=== PATIENT | male | born 1980 | race Two or more races ===

== ENCOUNTER 2020-05-21 15:22 | Inpatient (IN) | payer OTHER, MEDICAID ==
[~2020-05-21] VITALS: Ht 170.2 cm; Wt 77.6 kg
[2020-05-21] MEDS ORDERED: HEPARIN SODIUM (PORCINE) 5000 UNITS/ML 1ML VIAL IV ONE ×2 (17:15→17:30)
[2020-05-21] MEDS ORDERED: HEPARIN DRIP/D5W 100UNITS/ML 250 ML IV SCH (17:28)
[2020-05-21] MEDS ORDERED: IOHEXOL 300 MG/ML 100ML BOTTLE IJ ONE (17:29)
[2020-05-21] MEDS ORDERED: MORPHINE SULF INJ 2 MG/ML SYRINGE 1ML IV PRN ×3 (18:15→21:30)
[2020-05-21] MEDS ORDERED: NITROGLYCERIN 0.4 MG SL TAB SL PRN ×2 (18:15→21:30)
[2020-05-21 18:43] LABS: Basophils # (auto) 0.1 10 ^3/uL (0-0.2); Basophils % (auto) 1.3 % (0.0-2.0); Eosinophils # (auto) 0 10 ^3/uL (0-0.8); Eosinophils % (auto) 0.1 % (0.0-7.0); Hematocrit 42.7 % (41.0-53.0); Hemoglobin 13.7 g/dL (13.5-17.5); Lymphocytes # (auto) 1.1 10 ^3/uL (0.4-5.4); Mean Corpuscular Hemoglobin 27.3 pg (28.0-32.0); Mean Corpuscular Volume 85.4 fL (80.0-100.0); Monocytes # (auto) 0.8 10 ^3/uL (0-1.3); Monocytes % (auto) 8.2 % (0.0-12.0); Neutrophils # (auto) 7.3 10 ^3/uL (1.6-8.6); Neutrophils % (auto) 78.4 % (37.0-80.0); Nucleated Red Blood Cells % 0.2 %; Platelet Count (auto) 276 10^3/uL (140-450); Red Cell Distribution Width 14.9 % (11.8-14.3); White Blood Cell 9.3 10^3/uL (4.4-10.8)
[2020-05-21 19:00] LABS: Albumin 3.4 g/dL (3.4-5.0); Calcium 8.5 mg/dL (8.5-10.1); Potassium 3.4 mmol/L (3.5-5.1)
[2020-05-21 19:03] LABS: Bilirubin, Total 1.4 mg/dL (0.2-1.0); Total Protein 6.9 g/dL (6.4-8.2)
[2020-05-21 19:09] LABS: INR 1.12 (0.9-1.15); Partial Thromboplastin Time 31.8 sec (23.0-31.2)
[2020-05-21] MEDS ORDERED: LORazepam 0.5 MG TAB PO PRN (21:30)
[2020-05-21] MEDS ORDERED: ACETAMINOPHEN 325 MG TAB PO PRN (21:30)
[2020-05-21] MEDS ORDERED: POTASSIUM CHL 20 Meq TABLET PO ONE (21:30)
[2020-05-21] MEDS ORDERED: ONDANSETRON HCL 4 MG/2 ML VIAL IV PRN (21:30)
[2020-05-21] MEDS ORDERED: DOCUSATE SOD 100 MG CAP PO PRN (21:30)
[2020-05-21] MEDS ORDERED: IBUPROFEN 400 MG TAB PO PRN (21:30)
[2020-05-21] MEDS: SODIUM CHLORIDE 0.9% 1,000 ML IV SCH (21:43)
[2020-05-21 21:47] LABS: Cholesterol 202 mg/dL (< 200); HDL Cholesterol 49 mg/dL (40-59); LDL Cholesterol 145 mg/dL (< 100); Triglycerides 113 mg/dL (< 150)
[2020-05-22 02:34] LABS: INR 1.16 (0.9-1.15); Partial Thromboplastin Time 50.4 sec (23.0-31.2)
[2020-05-22 06:20] LABS: Basophils # (auto) 0.1 10 ^3/uL (0-0.2); Basophils % (auto) 0.7 % (0.0-2.0); Eosinophils # (auto) 0 10 ^3/uL (0-0.8); Eosinophils % (auto) 0.2 % (0.0-7.0); Hematocrit 38.2 % (41.0-53.0); Hemoglobin 12.5 g/dL (13.5-17.5); Lymphocytes # (auto) 1.4 10 ^3/uL (0.4-5.4); Lymphocytes % (auto) 16.3 % (10.0-50.0); Mean Corpuscular Hemoglobin 27.7 pg (28.0-32.0); Mean Corpuscular Hgb Conc. 32.8 g/dL (32.0-36.0); Mean Corpuscular Volume 84.3 fL (80.0-100.0); Monocytes # (auto) 0.7 10 ^3/uL (0-1.3); Monocytes % (auto) 7.8 % (0.0-12.0); Neutrophils # (auto) 6.3 10 ^3/uL (1.6-8.6); Platelet Count (auto) 268 10^3/uL (140-450); Red Blood Cells 4.53 10^6/uL (4.5-5.90); Red Cell Distribution Width 14.9 % (11.8-14.3); White Blood Cell 8.5 10^3/uL (4.4-10.8)
[2020-05-22 06:34] LABS: INR 1.11 (0.9-1.15); Partial Thromboplastin Time 44.9 sec (23.0-31.2)
[2020-05-22 06:36] LABS: Chloride 108 mmol/L (98-107); Potassium 3.9 mmol/L (3.5-5.1); Sodium 135 mmol/L (136-145)
[2020-05-22 06:46] LABS: Alanine Aminotransferase 33 U/L (16-61); Albumin 2.9 g/dL (3.4-5.0); Alkaline Phosphatase 78 U/L (45-117); Anion Gap 11 (5-15); Aspartate Aminotransferase 27 U/L (15-37); Bilirubin, Total 1.2 mg/dL (0.2-1.0); Blood Urea Nitrogen 6 mg/dL (7-18); Calcium 7.9 mg/dL (8.5-10.1); Carbon Dioxide 16 mmol/L (21-32); Glucose 68 mg/dL (74-106); Magnesium 2.1 mg/dL (1.6-2.6); Total Protein 6.4 g/dL (6.4-8.2)
[2020-05-22 06:57] LABS: BUN/Creatinine Ratio 7.1; GFR African American 130 mL/min; GFR Non-African American 107 mL/min
[2020-05-22 08:48] LABS: Urine Bacteria NONE SEEN /hpf (None Seen); Urine Blood Negative /uL (Negative); Urine Specific Gravity 1.023 (1.001-1.035); Urine WBC <1 /hpf (0 - 3)
[2020-05-22 08:55] LABS: Alcohol, Urine < 3.0 mg/dL (0-10); Amphetamine Screen, Urine NEGATIVE (NEGATIVE); Barbiturate Scree,Urine NEGATIVE (NEGATIVE); Benzodiazephine Screen, Urine NEGATIVE (NEGATIVE); Cannabinoid Screen, Urine NEGATIVE (NEGATIVE); Cocaine Screen, Urine NEGATIVE (NEGATIVE); Opiate Scree,Urine NEGATIVE (NEGATIVE); Phencyclidine Screen, Urine NEGATIVE (NEGATIVE)
[2020-05-22] MEDS: POTASSIUM CHL 20 Meq TABLET PO SCH (10:00)
[2020-05-22 10:58] LABS: INR 1.14 (0.9-1.15)
--- NOTE | 2020-05-22 12:45 | NUR ---
Telemetry admit from [facility] admitted to Telemetry unit after SBAR received. Patient oriented to CHUCKY BOOGIE, primary RN, unit, room, bed, and unit policies regarding patient care and visiting hours. Patient now on continuous telemetry monitoring. Patient weighed by bedscale and encouraged to call if they need something. All questions and concerns addressed, patient verbalized understanding.
[2020-05-22] MEDS: SODIUM CHLORIDE 0.9% 1,000 ML IV SCH (14:47)
[2020-05-22 16:01] LABS: INR 1.11 (0.9-1.15); Partial Thromboplastin Time 48.1 sec (23.0-31.2)
[2020-05-22 17:00] VITALS: BP 93/59
[2020-05-22] MEDS: HEPARIN DRIP/D5W 100UNITS/ML 250 ML IV SCH (17:30)
--- NOTE | 2020-05-22 19:24 | NUR ---
Opening Shift Note Assumed care of patient, awake and alert x 4 but is unable to move his bilateral lower extremities and has moderate weakness in his bilateral upper extremities, secondary to muscular dystrophy. No S/S of distress/SOB or pain. Bed is in lowest position and locked. Heparin infusing at 1400 units per hour or 14 mls/hr. Tele box number matches monitor and leads are in correct placement. Instructed on POC and to call for assist PRN, will continue to monitor for changes Q1hr and PRN.
[2020-05-22 21:00] VITALS: BP 111/82
--- NOTE | 2020-05-22 23:01 | NUR ---
Lab industrial ecology technician unable to draw blood due to arm constriction r/t patient's muscular dystrophy. Lab notified. Second industrial ecology technician coming from to draw patient's blood.
--- NOTE | 2020-05-22 23:49 | NUR ---
Successful lab draw completed. PT/PTT sent to lab. Awaiting results to titrate Heparin.
[2020-05-22] MEDS: HYDROcodone-ACET 5/325MG TAB PO PRN (23:55)
--- NOTE | 2020-05-23 00:04 | NUR ---
Scheduled next PT/PTT for 0500 to give extra time to lab wound specialist to draw blood.
[2020-05-23 00:22] LABS: INR 1.08 (0.9-1.15); Partial Thromboplastin Time 43.6 sec (23.0-31.2)
--- NOTE | 2020-05-23 00:32 | NUR ---
APTT is now 43.6 sec. Heparin infusion increased by 200 units/20 mls per hour to 1600 units/16 units per hour. Will continue to assess. Addendum: 05/23/20 at 0633 by DENNYS SHIELDS RN 200 units/2 mls not 200 units/20 mls; total amount being given is now 1600 units/16 mls per hour.
[2020-05-23 05:00] VITALS: BP 104/73
--- NOTE | 2020-05-23 05:18 | NUR ---
Blood draw for PT/PTT drawn by cpo and sent to lab. Awaiting results.
[2020-05-23 06:02] LABS: INR 1.11 (0.9-1.15)
[2020-05-23 06:04] LABS: Partial Thromboplastin Time 86.8 sec (23.0-31.2)
--- NOTE | 2020-05-23 06:06 | NUR ---
PTT has now risen to 86.8. Per Heparin protocol order, I will decrease Heparin infusion to 14 ml/hr or 1400 ml/hr.
[2020-05-23] MEDS: SODIUM CHLORIDE 0.9% 1,000 ML IV SCH ×2 (06:20→23:30)
--- NOTE | 2020-05-23 07:30 | NUR ---
Opening Shift Note Assumed care of patient, awake and alert. No S/S of distress/SOB or pain. Instructed on POC and to call for assist PRN, will continue to monitor for changes Q1hr and PRN. Fall precautions in place per safety protocol.
[2020-05-23] MEDS: PANTOPRAZOLE 40 MG/10 ML VIAL INJ IV SCH (10:35)
[2020-05-23] MEDS: POTASSIUM CHL 20 Meq TABLET PO SCH (10:35)
--- NOTE | 2020-05-23 10:54 | NUR ---
WOUND CARE NOTE: Wound care in to see patient per wound care request regarding " Low Deon Score, Prolonged immobility r/t muscular dystrophy." Patient is 40 years old male with admitting diagnosis of LE DVT. Patient is resting in bed in Rm. 222A. Patient is awake, alert and oriented. He's wheelchair bound but has good upper body strength, able to call for assistance if needed cleaning and repositioning. His Deon score is 17. Patient is in no stated pain at this time and he appears to be in no pain using [place] Tristan Faces Pain Scale. Skin assessment done with the assistance of patient's nurse, MONIQUE Fontenot. No wound or pressure injury noted. Patient is receiving BID/PRN cleaning and application of Barrier cream to sacral, buttocks as preventative. Repositioned patient for comfort facing his Lt side, redistributed pressure points with pillows. Patient tolerated well. MONIQUE Fontenot at bedside. RECOMMENDATION: Nursing to continue with BID/PRN cleaning and application of Barrier cream to sacral, buttocks as preventative, frequent turning and repositioning schedule as condition permits, redistribute pressure points with pillows, elevate heels on pillows, continue monitoring by wound care while patient is hospitalized. Addendum: 05/23/20 at 1552 by Lisa Bose RN Amended: Links added.
[2020-05-23 12:05] LABS: INR 1.09 (0.9-1.15)
[2020-05-23 12:10] LABS: Partial Thromboplastin Time 70.4 sec (23.0-31.2)
[2020-05-23] MEDS: HEPARIN DRIP/D5W 100UNITS/ML 250 ML IV SCH (12:10)
--- NOTE | 2020-05-23 12:12 | NUR ---
PTT 70.4. Per Heparin protocol order, no changes made, cont Heparin infusion at 14 ml/hr. Will cont to monitor patient.
--- NOTE | 2020-05-23 15:41 | NUR ---
assessment re: ss consult Patient is a 40 year old male who is alert and oriented. Per patient he lives home with roommates and functions with assistance of his [facility] caregiver. Patient informed me he gets 100 or more hours per month. Patient has a wheelchair and van with wheelchair ramp for his use. Patient informed me his PCP is Dr Dias. Patient has muscular dystrophy. I informed patient of his ss consult for needing more help during the day. Patient informed me his good friend is his caregiver and will come whenever he needs him. Patient stated he doesn't want to bother him if he doesn't have to. I informed patient to be re-evaluated for more [facility] hours. Patient agreed. I have also provided patient with private pay caregiver resources. Patient accepted. I will continue to monitor and follow up as appropriate. Patient may benefit from home health safety eval on discharge. Patient verbalized understanding and agreed to discharge plan home. Addendum: 05/23/20 at 1551 by Amirah REA Amended: Links added.
--- NOTE | 2020-05-23 17:00 | NUR ---
PTT 66.3. Per Heparin protocol order, no changes made, cont Heparin infusion at 14 ml/hr. Will cont to monitor patient.
[2020-05-23 18:14] LABS: INR 1.09 (0.9-1.15); Partial Thromboplastin Time 66.3 sec (23.0-31.2)
[2020-05-23 21:56] VITALS: BP 102/64
--- NOTE | 2020-05-23 22:51 | NUR ---
Successful lab raw performed for APTT. Awaiting results. Addendum: 05/24/20 at 0516 by DENNYS SHIELDS RN draw
--- NOTE | 2020-05-24 00:15 | NUR ---
Cecelia and spoke to Katy in Lab to enquire why PTT results are not available yet. Per Katy the results should be available in 10 minutes.
[2020-05-24] MEDS: HEPARIN DRIP/D5W 100UNITS/ML 250 ML IV SCH ×2 (04:22→23:48)
--- NOTE | 2020-05-24 04:24 | NUR ---
Patient's BP dropped to 83/54 with MAP of 63. NS and Heparin infusions had ended. Replaced NS and Heparin and will reassess BP in one hour. Patient is asymptomatic.
--- NOTE | 2020-05-24 05:11 | NUR ---
BP reassessment: 89/56 with MAP of 67. Will continue to monitor.
[2020-05-24 06:02] LABS: Blood Urea Nitrogen 4 mg/dL (7-18)
[2020-05-24 06:12] LABS: INR 1.13 (0.9-1.15)
[2020-05-24 06:13] LABS: Partial Thromboplastin Time 124.4 sec (23.0-31.2)
--- NOTE | 2020-05-24 06:14 | NUR ---
Heparin held per protocol. APTT is 124.4 sec. Will endorse to day shift RN to start heparin infusion in 1 hour and decrease 300 units/3 mls/hr when restarting Heparin.
[2020-05-24 06:27] LABS: GFR African American 1525 mL/min; GFR Non-African American 1261 mL/min
[2020-05-24 09:00] VITALS: BP 103/72
[2020-05-24] MEDS ORDERED: IOHEXOL 300 MG/ML 100ML BOTTLE IJ ONE (09:10)
[2020-05-24] MEDS: POTASSIUM CHL 20 Meq TABLET PO SCH (10:13)
[2020-05-24] MEDS: PANTOPRAZOLE 40 MG/10 ML VIAL INJ IV SCH (10:13)
--- NOTE | 2020-05-24 11:42 | NUR ---
Nutrition Assessment Note please see attached link for complete assessment Est energy needs BW 74 [id number] (23-25 kcal/kg BW) Est protein needs 74-81 g (1.0-1.1g/kg BW) will reassess prn Addendum: 05/24/20 at [address] Amended: Links added.
--- NOTE | 2020-05-24 11:43 | NUR ---
SPOKE TO MONIQUE MURDOCK. INFORMED TO CONSENT PATIENT FOR PROCEDURE. PER PATIENT Brenda NIXON HAS ALREADY SPOKEN TO PATIENT. INFORMED MONIQUE MURDOCK PATIENT IS ON A HEPARIN DRIP AND PATIENT DID HAVE A SMALL AMOUNT OF WATER WITH MEDICATIONS THIS MORNING.
--- NOTE | 2020-05-24 12:00 | NUR ---
lab attmepting lab draw. unable to obtain at this time. Per incinerator plant laborer will send new teller supervisor to try.
--- NOTE | 2020-05-24 12:26 | NUR ---
ATTEMPTED TO CALL Brenda NIXON TO VERIFY IF PATIENT IS GOING DOWN HEPARIN DRIP. NO ANSWER AT THIS TIME TIME.
--- NOTE | 2020-05-24 12:38 | NUR ---
HEPARIN DRIP PAUSED PER Brenda NIXON.
--- NOTE | 2020-05-24 12:39 | NUR ---
INFORMED SKI MOLDER OF DELAY DUE TO PAUSING HEPARIN. INSTRUCTED TO BRING PATIENT DOWN AT 1300.
[2020-05-24 13:00] VITALS: BP 110/75
--- NOTE | 2020-05-24 13:17 | NUR ---
PATIENT TAKEN DOWN TO PROCEDURE. INFORMED RN HANS OF PATIENT PENDING TYPE AND SCREEN AND OF MOST RECENT PTT. NO S/S OF DISTRESS, TRANSPORTED WITH DIPLOMATIC OFFICER IN PLACE.
[2020-05-24 14:14] LABS: INR 1.09 (0.9-1.15); Partial Thromboplastin Time 33.8 sec (23.0-31.2)
[2020-05-24] MEDS ORDERED: MIDAZOLAM HCL 1MG/1ML-2 ML VIAL ONE (15:55)
[2020-05-24] MEDS ORDERED: fentaNYL CITRATE 100 MCG/2 ML VL ONE (15:55)
[2020-05-24] MEDS ORDERED: IODIXANOL 320MG/ML 100ML BTL IV ONE (15:56)
[2020-05-24] MEDS ORDERED: LIDOCAINE 2%HCL (LOCAL ANESTH.) INJ 20ML MDV ONE (15:56)
[2020-05-24] MEDS: SODIUM CHLORIDE 0.9% 1,000 ML IV SCH (16:04)
--- NOTE | 2020-05-24 16:35 | NUR ---
heparin drip provided to MONIQUE Sanchez informed that heparin drip needs to be titrated per new lab draws.
[2020-05-24] MEDS ORDERED: HEPARIN SODIUM (PORCINE) 5000 UNITS/ML 1ML VIAL ONE ×2 (16:48)
--- NOTE | 2020-05-24 16:50 | NUR ---
Heparin 5000 units/ml IVP given per Heparin drip protocol.
--- NOTE | 2020-05-24 17:50 | NUR ---
ARRIVAL NOTE: PATIENT ARRIVED BACK TO UNIT, BROUGHT UP BY MONIQUE ESTEVES AND MONIQUE HAYWARD. PATIENT DENIES ANY PAIN. PATIENT HAS NO FACIAL DEFICITS AND DENIES ANY PAIN AT THIS TIME. DRESSING TO R NECK CLEAN DRY AND INTACT. SLIGHT TENDERNESS. NO S/S OF HEMATOMA FORMATION. PATIENTS BLOOD PRESSURE AT 151/91MMHG AND HEART RATE 78BPM.
--- NOTE | 2020-05-24 19:32 | NUR ---
Opening Shift Note Assumed care of patient, awake and alert x 4 but is unable to move his bilateral lower extremities and has moderate weakness in his bilateral upper extremities, secondary to muscular dystrophy. Incision site for IVC filter to right neck is CDI. No S/S of distress/SOB or pain. Bed is in lowest position and locked. Heparin infusing at 1600 units per hour or 16 mls/hr. Tele box number matches monitor and leads are in correct placement. Instructed on POC and to call for assist PRN, will continue to monitor for changes Q1hr and PRN.
[2020-05-24 22:05] VITALS: BP 107/71
[2020-05-24 23:50] LABS: INR 1.17 (0.9-1.15)
--- NOTE | 2020-05-24 23:50 | NUR ---
Heparin infusion stopped at this time. APTT is 119.3 sec. Per protocol, Heparin will be stopped for one hour (0050) and then restarted with a decrease in rate of 3 mls/hr or 300 units/hr. Current rate is 16 mls/hr. Will decrease to 13 mls/hr.
[2020-05-24 23:52] LABS: Partial Thromboplastin Time 119.3 sec (23.0-31.2)
--- NOTE | 2020-05-25 00:50 | NUR ---
Heparin infusion restarted at 1300 units/ 13 mls/hr. Will continue to assess.
[2020-05-25 05:00] VITALS: BP 117/71
[2020-05-25 06:30] LABS: Basophils # (auto) 0.1 10 ^3/uL (0-0.2); Eosinophils # (auto) 0 10 ^3/uL (0-0.8); Eosinophils % (auto) 0.7 % (0.0-7.0); Hematocrit 36.7 % (41.0-53.0); Lymphocytes # (auto) 1.4 10 ^3/uL (0.4-5.4); Lymphocytes % (auto) 23.9 % (10.0-50.0); Mean Corpuscular Hemoglobin 27.5 pg (28.0-32.0); Mean Corpuscular Hgb Conc. 32.7 g/dL (32.0-36.0); Mean Corpuscular Volume 84.2 fL (80.0-100.0); Monocytes # (auto) 0.4 10 ^3/uL (0-1.3); Neutrophils # (auto) 4.1 10 ^3/uL (1.6-8.6); Neutrophils % (auto) 67.4 % (37.0-80.0); Nucleated Red Blood Cells % 0.1 %; Platelet Count (auto) 364 10^3/uL (140-450); Red Blood Cells 4.36 10^6/uL (4.5-5.90); Red Cell Distribution Width 14.8 % (11.8-14.3)
[2020-05-25 06:50] LABS: Anion Gap 9 (5-15); BUN/Creatinine Ratio 26.7; Blood Urea Nitrogen 4 mg/dL (7-18); Calcium 7.9 mg/dL (8.5-10.1); Carbon Dioxide 22 mmol/L (21-32); Chloride 108 mmol/L (98-107); GFR African American 955 mL/min; GFR Non-African American 789 mL/min; Glucose 87 mg/dL (74-106); Magnesium 1.9 mg/dL (1.6-2.6); Potassium 3.4 mmol/L (3.5-5.1); Sodium 139 mmol/L (136-145)
--- NOTE | 2020-05-25 07:00 | NUR ---
Heparin infusion stopped. APTT is 109.4 second. Will hold for one hour and then decrease by 300 units/3 mls/hr to 1000 units/10 mls/hr. Endorsed to days shift RN.
[2020-05-25 07:01] LABS: INR 1.15 (0.9-1.15)
[2020-05-25 07:03] LABS: Partial Thromboplastin Time 109.4 sec (23.0-31.2)
[2020-05-25 08:00] VITALS: BP 95/65
--- NOTE | 2020-05-25 08:00 | NUR ---
APTT is 109.4 second. Drip restarted at 0800 after being held for one hour and then decrease by 300 units/3 mls/hr to 1000 units/10 mls/hr.
[2020-05-25 09:07] VITALS: BP 95/65
[2020-05-25] MEDS: SODIUM CHLORIDE 0.9% 1,000 ML IV SCH (09:40)
[2020-05-25] MEDS: PANTOPRAZOLE 40 MG/10 ML VIAL INJ IV SCH (09:55)
[2020-05-25] MEDS: POTASSIUM CHL 20 Meq TABLET PO SCH (09:55)
--- NOTE | 2020-05-25 10:38 | NUR ---
DR HALEY AT BEDSIDE. DISCUSSED DISCHARGE PLAN AND FOLLOW UPS UPON DC.
[2020-05-25] MEDS: HYDROcodone-ACET 5/325MG TAB PO PRN (12:24)
[2020-05-25 14:17] LABS: INR 1.1 (0.9-1.15); Partial Thromboplastin Time 47.8 sec (23.0-31.2)
--- NOTE | 2020-05-25 16:20 | NUR ---
PATIENT IS DISCHARGED PER MD'S ORDER. DISCHARGE SUMMARY AND FOLLOW INSTRUCTIONS PROVIDED. PATIENT VERBALIZED UNDERSTANDING OF INSTRUCTIONS AND PRESCRIBED ELIQUIS. IV DISCONTINUED AND TELE BOX #[id number] RETURNED TO ICU. PATIENT ALERT AND ORIENTED AT THIS TIME, NO S/S DISTRESS NOTED.
== END 2020-05-25 16:20 | disposition home or self-care (01) | DRG 252 ==
LOC: ER 15:22 → EDBD 15:22 → OVERFLOW 15:23 → TELE-CENTR 05-22 12:45
PROVIDERS: ADMIT Hospitalist; ATTEND Internal Medicine
PROC: B5191ZZ Fluoroscopy of Inferior Vena Cava using Low Osmolar Contrast (ICD-10-PCS; principal; 2020-05-24)
PROC: 06H03DZ Insertion of Intraluminal Device into Inferior Vena Cava, Percutaneous Approach (ICD-10-PCS; 2020-05-24)
DX: I82.413 Acute embolism and thrombosis of femoral vein, bilateral (principal); G82.50 Quadriplegia, unspecified; I82.220 Acute embolism and thrombosis of inferior vena cava; G71.01 Duchenne or Becker muscular dystrophy; E88.09 Other disorders of plasma-protein metabolism, not elsewhere classified; E87.6 Hypokalemia; K76.0 Fatty (change of) liver, not elsewhere classified; Z79.01 Long term (current) use of anticoagulants; Z95.828 Presence of other vascular implants and grafts; Z90.49 Acquired absence of other specified parts of digestive tract; Z99.3 Dependence on wheelchair
CPT/HCPCS: 36415; 37191; 70450; 74176; 74177; 76942; 80048; 80053; 80061; 80307; 81001; 82565; 83036; 83735; 84100; 84520; 85025; 85379; 85610; 85730; 86850; 86900; 86901; 87086; 93970; 99152; 99153; C9113; G0378; J2250; Q9967

== ENCOUNTER 2022-07-14 14:53 | Inpatient (IN) | payer OTHER ==
[~2022-07-14] VITALS: Ht 172.7 cm; Wt 78.4 kg
[2022-07-14 17:21] LABS: Basophils # (auto) 0.1 10 ^3/uL (0-0.2); Basophils % (auto) 2.4 % (0.0-2.0); Eosinophils # (auto) 0.1 10 ^3/uL (0-0.8); Eosinophils % (auto) 1.2 % (0.0-7.0); Hematocrit 44.8 % (41.0-53.0); Hemoglobin 14.8 g/dL (13.5-17.5); Lymphocytes % (auto) 36.7 % (10.0-50.0); Mean Corpuscular Hemoglobin 27.3 pg (28.0-32.0); Mean Corpuscular Hgb Conc. 32.9 g/dL (32.0-36.0); Mean Corpuscular Volume 82.9 fL (80.0-100.0); Monocytes # (auto) 0.3 10 ^3/uL (0-1.3); Monocytes % (auto) 5.5 % (0.0-12.0); Neutrophils % (auto) 54.2 % (37.0-80.0); Nucleated Red Blood Cells % 0.2 %; Red Cell Distribution Width 15.9 % (11.8-14.3); White Blood Cell 5.5 10^3/uL (4.4-10.8)
[2022-07-14 17:39] LABS: Albumin 3.9 g/dL (3.4-5.0); Potassium 4.2 mmol/L (3.5-5.1)
[2022-07-14 17:42] LABS: INR 1.02 (0.9-1.15); Partial Thromboplastin Time 30.8 sec (24.6-33.4)
[2022-07-14 17:44] LABS: BUN/Creatinine Ratio 83.3; Bilirubin, Total 0.6 mg/dL (0.2-1.0)
[2022-07-14] MEDS ORDERED: ACETAMINOPHEN 325 MG TAB PO PRN (20:30)
[2022-07-14] MEDS ORDERED: ONDANSETRON HCL 4 MG/2 ML VIAL IV PRN (20:30)
[2022-07-14] MEDS ORDERED: TEMAZEPAM 15 MG CAP PO PRN (20:30)
[2022-07-14] MEDS ORDERED: MORPHINE SULFATE INJ 2 MG/ml SYRG IV PRN (20:30)
[2022-07-14] MEDS ORDERED: HYDROcodone-ACET 5/325MG TAB PO PRN (20:30)
[2022-07-14] MEDS ORDERED: NITROGLYCERIN 0.4 MG SL TAB SL PRN (20:30)
[2022-07-15] MEDS: ENOXAPARIN SOD 80 MG/0.8ML SYRINGE SC SCH ×3 (00:17→22:12)
[2022-07-15 08:12] LABS: Basophils # (auto) 0.1 10 ^3/uL (0-0.2); Eosinophils # (auto) 0.1 10 ^3/uL (0-0.8); Eosinophils % (auto) 1.7 % (0.0-7.0); Hematocrit 41.9 % (41.0-53.0); Hemoglobin 13.6 g/dL (13.5-17.5); Lymphocytes % (auto) 40.9 % (10.0-50.0); Mean Corpuscular Hemoglobin 27.1 pg (28.0-32.0); Mean Corpuscular Hgb Conc. 32.5 g/dL (32.0-36.0); Mean Corpuscular Volume 83.6 fL (80.0-100.0); Monocytes # (auto) 0.4 10 ^3/uL (0-1.3); Monocytes % (auto) 7.3 % (0.0-12.0); Neutrophils # (auto) 2.5 10 ^3/uL (1.6-8.6); Neutrophils % (auto) 49.1 % (37.0-80.0); Nucleated Red Blood Cells % 0.1 %; Red Blood Cells 5.01 10^6/uL (4.5-5.90)
[2022-07-15 08:57] LABS: Albumin 3.4 g/dL (3.4-5.0); Bilirubin, Total 0.6 mg/dL (0.2-1.0); Calcium 8.4 mg/dL (8.5-10.1); Potassium 4.5 mmol/L (3.5-5.1); Total Protein 6.3 g/dL (6.4-8.2)
[2022-07-15] MEDS: FUROSEMIDE 20 MG TAB PO SCH (10:00)
[2022-07-15] MEDS: PANTOPRAZOLE 40 MG TAB PO SCH (11:09)
[2022-07-15 19:58] VITALS: BP 118/79
[2022-07-15 20:00] VITALS: BP 118/79
[2022-07-15] MEDS ORDERED: APIX5TAB PO (20:18)
[2022-07-15] MEDS ORDERED: POTA1TAB64 PO (20:18)
[2022-07-15] MEDS ORDERED: FUR20T PO (20:18)
[2022-07-15 22:00] VITALS: BP 118/79
[2022-07-16 05:00] VITALS: BP 106/71
[2022-07-16] MEDS: PANTOPRAZOLE 40 MG TAB PO SCH (08:48)
[2022-07-16] MEDS: FUROSEMIDE 20 MG TAB PO SCH (08:50)
[2022-07-16] MEDS: ENOXAPARIN SOD 80 MG/0.8ML SYRINGE SC SCH (08:51)
[2022-07-16 08:58] VITALS: BP 95/61
[2022-07-16 11:49] VITALS: BP 106/71
[2022-07-16 12:58] VITALS: BP 92/59
== END 2022-07-16 14:00 | disposition home or self-care (01) | DRG 300 ==
LOC: ER 15:03 → TELE 20:28 → TELE-EAST 07-15 19:40
PROVIDERS: ADMIT Nurse Practitioner; ATTEND Internal Medicine
DX: I82.403 Acute embolism and thrombosis of unspecified deep veins of lower extremity, bilateral (principal); D68.59 Other primary thrombophilia; G71.00 Muscular dystrophy, unspecified; Z20.822 Contact with and (suspected) exposure to COVID-19; Z99.3 Dependence on wheelchair; Z79.01 Long term (current) use of anticoagulants; Z95.828 Presence of other vascular implants and grafts
CPT/HCPCS: 36415; 80053; 85025; 85379; 85610; 85730; 87426; 93970; G0378

== ENCOUNTER 2024-10-20 21:56 | Emergency (ER) | payer OTHER, MEDICAID ==
[~2024-10-20] VITALS: Ht 167.6 cm; Wt 72.7 kg
[~2024-10-20 21:56] MED LIST: APIX5TAB PO; FURO20TA4 PO; POTA1TAB64 PO
[2024-10-20 22:13] VITALS: PULSE 102; RESP 97; O2SAT 97
--- NOTE | 2024-10-20 22:41 | ED.PDOC ---
History of Present Illness HPI Comments 44-year-old male came to emergency room via EMS for generalized weakness. Patient has history of muscular dystrophy, and is wheelchair-bound. Has been fasting for the past 4 days, drinking only water. He started drinking/ taking broth few hours ago and he started having bouts of nausea and vomiting, was having headaches, dizziness and was feeling generally weak. Denies any abdominal pain. Blood sugar on scene was 162, blood pressure of 123/70 mmHg Chief Complaint: General Weakness Time Seen by MD: 22:40 Primary Care Provider: UNKNOWN Reviewed Notes: Nurses Notes Allergies: Coded Allergies: NO KNOWN ALLERGIES (Unverified , 05/21/20) Home Meds Reported Medications Potassium Chloride (K-Tab) 8 Meq Tab, 1 TAB PO DAILY 07/15/22 Furosemide (Furosemide) 20 Mg Tab, 1 TAB PO DAILY 07/15/22 Apixaban Base (ELIQUIS) 5 Mg Tab, 1 TAB PO BID 07/15/22 Information Source: Patient Mode of Arrival: EMS Severity: Moderate Timing: Hours Duration: Since onset Review of Systems REVIEW OF SYSTEMS: No fever, no chills, or fatigue HEENT: No sore throat, no earache, no congestion, no neck pain. Cardiac: No chest pain. No palpitations. Lungs: No shortness of breath, no cough. GI: No nausea, no vomiting, no diarrhea, no constipation, no abdominal pain : No dysuria, frequency, or urgency. No hematuria. Musculoskeletal: No joint pain , no joint swelling, no extremity edema. Skin: No rash, no itching. Neuro: No headache, no dizziness, no weakness Vital Signs Vital Signs Date Time Temp Pulse Resp B/P (MAP) Pulse Ox O2 Delivery O2 Flow Rate FiO2 10/21/24 00:05 97.5 94 13 112/73 (86) 98 97.5 10/20/24 22:13 Room Air* 0 21 Physical Exam General: Awake, alert and oriented. No acute distress. Skin: Skin in warm, dry and intact. Appropriate color for ethnicity. Nailbeds pink with no cyanosis. HEENT: The head is normocephalic and atraumatic. Conjunctivae are clear without exudates or hemorrhage. Sclera is non-icteric. EOM are intact. No signs of nystagmus. Eyelids are normal in appearance without swelling or lesions. Oral mucosa is pink and moist Neck: The neck is supple with normal range of motion. No JVD. Cardiac: Heart rate and rhythm are normal. No murmurs, gallops, or rubs are auscultated. Respiratory: No signs of respiratory distress. Lung sounds are clear in all lobes bilaterally without rales, ronchi, or wheezes. Abdominal: Abdomen is soft, non-tender without distention. Bowel sounds are present and normoactive in all four quadrants. Extremities: Upper and lower extremities are atraumatic in appearance without deformity or edema. Neurological: The patient is awake, alert and oriented to person, place, and time with normal speech. Speech is clear. There is no facial asymmetry. Psychiatric: Appropriate mood and affect. Good judgement and insight. No visual or auditory hallucinations. Past Medical History Past Medical History (Other): Muscular dystrophy Surgical History: Appendectomy Family History Family History: Reviewed,noncontributory to illness Social History Smoker: Non-Smoker Alcohol: Denies ETOH Use Drugs: Denies Drug Use Lives In: Home Was a procedure done? Was a procedure done?: No EKG EKG : Pulse Rate (adult): 97 Cardiac Rhythm: NSR Differential Dx Considerations may include: Anemia, electrolyte imbalance, dehydration, muscular dystrophy X-Ray, Labs, Meds, VS Vital Signs Date Time Temp Pulse Resp B/P (MAP) Pulse Ox O2 Delivery O2 Flow Rate FiO2 10/21/24 00:05 97.5 94 13 112/73 (86) 98 97.5 10/20/24 22:41 97 10/20/24 22:13 98.0 102 17 112/73 (86) 97 98.0 10/20/24 22:13 102 97 97 Room Air* 0 21 10/20/24 22:00 98.2 100 16 123/77 (92) 98 Lab Test 10/20/24 23:10 Range/Units White Blood Count 5.8 4.4-10.8 10^3/uL Red Blood Count 5.58 4.5-5.90 10^6/uL Hemoglobin 15.7 13.5-17.5 g/dL Hematocrit 46.2 41.0-53.0 % Mean Corpuscular Volume 82.9 80.0-100.0 fL Mean Corpuscular Hemoglobin 28.2 28.0-32.0 pg Mean Corpuscular Hemoglobin Concent 34.0 32.0-36.0 g/dL Red Cell Distribution Width 15.6 H 11.8-14.3 % Platelet Count 291 140-450 10^3/uL Mean Platelet Volume 7.2 6.9-10.8 fL Neutrophils (%) (Auto) 61.4 37.0-80.0 % Lymphocytes (%) (Auto) 26.4 10.0-50.0 % Monocytes (%) (Auto) 11.7 0.0-12.0 % Eosinophils (%) (Auto) 0.2 0.0-7.0 % Basophils (%) (Auto) 0.3 0.0-2.0 % Neutrophils # (Auto) 3.6 1.6-8.6 10 ^3/uL Lymphocytes # (Auto) 1.5 0.4-5.4 10 ^3/uL Monocytes # (Auto) 0.7 0-1.3 10 ^3/uL Eosinophils # (Auto) 0 0-0.8 10 ^3/uL Basophils # (Auto) 0 0-0.2 10 ^3/uL Nucleated Red Blood Cells 0.2 % Sodium Level 140 136-145 mmol/L Potassium Level 3.1 L 3.5-5.1 mmol/L Chloride Level 112 H 98-107 mmol/L Carbon Dioxide Level 19 L 20-31 mmol/L Anion Gap 9 5-15 Blood Urea Nitrogen 9 9-23 mg/dL Creatinine 0.34 L 0.700-1.30 mg/dL Glomerular Filtration Rate Calc 146 >90 mL/min BUN/Creatinine Ratio 26.5 H 10.0-20.0 Serum Glucose 140 H 74-106 mg/dL Calcium Level 9.6 8.7-10.4 mg/dL Magnesium Level 1.8 1.6-2.6 mg/dL Total Bilirubin 0.9 0.2-1.0 mg/dL Aspartate Amino Transferase (AST) 18 13-40 U/L Alanine Aminotransferase (ALT) 30 7-40 U/L Alkaline Phosphatase 96 46-116 U/L Total Protein 6.6 5.7-8.2 g/dL Albumin 4.2 3.2-4.8 g/dL Current Medications Medications (Trade) Dose Ordered Sig/Dylon Route Start Time Stop Time Status Last Admin Lactated Ringer's 1,000 ml @ 1,000 mls/hr Q1H ONCE IV 10/20/24 23:45 10/21/24 00:44 DC 10/20/24 23:58 Potassium Chloride (Klor-Con Tablet) 40 meq ONCE ONCE PO 10/21/24 01:00 10/21/24 01:03 DC 10/21/24 01:06 Time of 1ST Reevaluation: 22:37 Reevaluation 1ST: Unchanged Patient Education/Counseling: Diagnosis, Treatment Family Education/Counseling: No Family Present Departure 1 Departure Time of Disposition: 00:56 Impression: Primary Impression: Generalized weakness Additional Impression: Hypokalemia Disposition: HOME / SELF CARE / HOMELESS Condition: Stable Additional Instructions: ED DISCHARGE INSTRUCTIONS Instructions: Please read all instructions provided in this packet carefully. Although you have been discharged from the Emergency Department, this does not mean that you have a "clean bill of health". No definitive diagnosis for your symptoms has been made today. It is possible that you are in the process of developing a serious illness. This is why you must return to the ED without fail if any new or worsening symptoms (especially if your symptoms include chest pain, trouble breathing, abdominal pain, fever, headache, confusion, trouble seeing, or trouble walking) It is also very important that you see a primary care doctor within the next 3-5 days to follow up. If you are unable to get an appointment, return to the ED for re-evaluation. e-Prescriptions Ondansetron Odt 4MG Tab (ZOFRAN PO) 4 Mg Tb 4 MG PO TIDPRN PRN for 3 Days, #9 TAB ODT TAB-DISSOLVE IN MOUTH, THEN SWALLOW Prov: CHARLEY TERESA MD 10/21/24 Potassium Chloride (Klor-Con 10) 10 Meq Tab 10 MEQ PO DAILY for 5 Days, #5 TAB Prov: CHARLEY TERESA MD 10/21/24 Comments 44-year-old male with history of muscular dystrophy presented to the emergency department with generalized weakness after 4 days of fasting, 1 episode of vomiting yesterday. Potassium 3.1. Replaced in the ED. Patient will be discharged home with Zofran and potassium for home. Patient well-appearing, nontoxic. Advised prompt follow-up with PCP, return to the ED with any new, worsening or concerning symptoms. I reviewed the following notes from the pt's past medical encounters: N/A The following tests were ordered, and results were reviewed by me: (See diagnostic results section) Additional information was gathered from interviewing the following independent historians: (N/A) I reviewed and agreed with the following test results read by other providers: N/A I discussed treatments and results with medical personnel and: N/A Decision regarding hospitalization or escalation of hospital level of care: Risks and benefits of admission for further treatment of patient's condition was considered however due to patient's stable condition patient will be discharged to follow up closely or return to care for worsening of condition or inability to follow up. Critical Care Note Critical Care Time?: No Stability Stability form required: No I personally scribed for CHARLEY TERESA MD ([email or web address]) on 10/20/24 at 22:41. Electronically submitted by Kayode Holder ([email or web address]). CHARLEY TERESA MD Oct 20, 2024 22:41
[2024-10-20] MEDS ORDERED: FOLIC ACID 1 MG, MAGNESIUM SULF SDV 50% 8 MEQ, MULTIPLE VITAMIN 10 ML, THIAMINE INJ 100... INJ SCH (23:00)
[2024-10-20 23:25] LABS: Basophils # (auto) 0 10 ^3/uL (0-0.2); Basophils % (auto) 0.3 % (0.0-2.0); Eosinophils # (auto) 0 10 ^3/uL (0-0.8); Eosinophils % (auto) 0.2 % (0.0-7.0); Hematocrit 46.2 % (41.0-53.0); Hemoglobin 15.7 g/dL (13.5-17.5); Lymphocytes # (auto) 1.5 10 ^3/uL (0.4-5.4); Lymphocytes % (auto) 26.4 % (10.0-50.0); Mean Corpuscular Hemoglobin 28.2 pg (28.0-32.0); Mean Corpuscular Volume 82.9 fL (80.0-100.0); Monocytes # (auto) 0.7 10 ^3/uL (0-1.3); Monocytes % (auto) 11.7 % (0.0-12.0); Neutrophils # (auto) 3.6 10 ^3/uL (1.6-8.6); Neutrophils % (auto) 61.4 % (37.0-80.0); Nucleated Red Blood Cells % 0.2 %; Platelet Count (auto) 291 10^3/uL (140-450); Red Blood Cells 5.58 10^6/uL (4.5-5.90); Red Cell Distribution Width 15.6 % (11.8-14.3); White Blood Cell 5.8 10^3/uL (4.4-10.8)
[2024-10-20 23:42] LABS: Alanine Aminotransferase 30 U/L (7-40); Albumin 4.2 g/dL (3.2-4.8); Alkaline Phosphatase 96 U/L (46-116); Anion Gap 9 (5-15); Aspartate Aminotransferase 18 U/L (13-40); BUN/Creatinine Ratio 26.5 (10.0-20.0); Bilirubin, Total 0.9 mg/dL (0.2-1.0); Blood Urea Nitrogen 9 mg/dL (9-23); Calcium 9.6 mg/dL (8.7-10.4); Carbon Dioxide 19 mmol/L (20-31); Chloride 112 mmol/L (98-107); Glucose 140 mg/dL (74-106); Magnesium 1.8 mg/dL (1.6-2.6); Potassium 3.1 mmol/L (3.5-5.1); Sodium 140 mmol/L (136-145); Total Protein 6.6 g/dL (5.7-8.2)
[2024-10-20] MEDS: LACTATED RINGER'S 1,000 ML IV ONE (23:58)
[2024-10-21] MEDS: POTASSIUM CHL 20 Meq TABLET PO ONE (01:06)
[2024-10-21] MEDS ORDERED: POTA-211 PO (01:11)
[2024-10-21] MEDS ORDERED: ZOFR4T PO (01:11)
[2024-10-21 01:33] VITALS: BP 109/76; PULSE 86; RESP 16; TEMP 98; O2SAT 99
--- NOTE | 2024-10-23 11:29 | ECG ---
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
== END 2024-10-21 02:44 | disposition home or self-care (01) ==
LOC: EDBD 21:56 → EDUNIT# 21:56 → ER 21:56
DX: E87.6 Hypokalemia (principal); R53.1 Weakness; Z79.01 Long term (current) use of anticoagulants; Z79.899 Other long term (current) drug therapy; Z90.49 Acquired absence of other specified parts of digestive tract; Z99.3 Dependence on wheelchair
CPT/HCPCS: 36415; 80053; 83735; 85025; 93005; 96360